=== PATIENT | male | born 1935 | race Two or more races ===

== ENCOUNTER 2019-04-26 06:42 | Emergency (ER) | payer OTHER ==
[~2019-04-26] VITALS: Ht 175.3 cm; Wt 77.2 kg
[2019-04-26] MEDS ORDERED: FURO20TA3 PO (07:45)
[2019-04-26] MEDS ORDERED: POTA10TA12 PO (07:45)
[2019-04-26] MEDS ORDERED: METF10007 PO (07:45)
[2019-04-26] MEDS ORDERED: SIMV20TA18 PO (07:45)
[2019-04-26] MEDS ORDERED: AMLO5TAB10 PO (07:45)
--- NOTE | 2019-04-26 07:56 | PHYS DOC ---
Past Medical History Past Medical History: Diabetes-Type II, High Cholesterol, Hypertension Adult General Chief Complaint Chief Complaint: ALTERED MENTAL STATUS [facility] HPI Patient is a 83 year old Montenegrin speaking male patient with history of hypertension, dyslipidemia, diabetes mellitus who presents with complaints of confusion. History was taking through translating service. Patient's son states he woke up this morning and screaming and stated he had a nightmare. Patient was confused and singing and talking to his who . Episode of confusion last about 20 minutes and patient returned to his normal. Patient had another episode of the same problem a few days ago that resolved spontaneously. Patient has history of diabetes mellitus and had episodes of racing as well as blood sugar of 40 because he does not eat well. Patient did not have blood sugar checked this morning but had coffee and candy prior to arrival to ER and had blood sugar of 121 at arrival to ER. Review of Systems Review of Systems Constitutional: Denies fever or chills [] Eyes: Denies change in visual acuity, redness, or eye pain [] HENT: Denies nasal congestion or sore throat [] Respiratory: Denies cough or shortness of breath [] Cardiovascular: No additional information not addressed in HPI [] GI: Denies abdominal pain, nausea, vomiting, bloody stools or diarrhea [] : Denies dysuria or hematuria [] Musculoskeletal: Denies back pain or joint pain [] Integument: Denies rash or skin lesions [] Neurologic: Denies headache, focal weakness or sensory changes [] Endocrine: Denies polyuria or polydipsia [] All other systems were reviewed and found to be within normal limits, except as documented in this note. Allergies Allergies Allergies Coded Allergies Type Severity Reaction Last Updated Verified No Known Drug Allergies 04/26/19 No Physical Exam Physical Exam Constitutional: Well developed, well nourished, no acute distress, non-toxic appearance. [] HENT: Normocephalic, atraumatic, bilateral external ears normal, oropharynx moist, no oral exudates, nose normal. [] Eyes: PERRLA, EOMI, conjunctiva normal, no discharge. [] Neck: Normal range of motion, no tenderness, supple, no stridor. [] Cardiovascular: Bradycardia, no murmur [] Lungs & Thorax: Bilateral breath sounds clear to auscultation [] Abdomen: Bowel sounds normal, soft, no tenderness, no masses, no pulsatile masses. [] Skin: Warm, dry, no erythema, no rash. [] Back: No tenderness, no CVA tenderness. [] Extremities: No tenderness, no cyanosis, no clubbing, ROM intact, no edema. [] Neurologic: Alert and oriented X 3, normal motor function, normal sensory function, no focal deficits noted.NIHS-0 [] Psychologic: Affect normal, judgement normal, mood normal. [] Current Patient Data Vital Signs Vital Signs Date Time Temp Pulse Resp B/P (MAP) Pulse Ox O2 Delivery O2 Flow Rate FiO2 04/26/19 10:12 50 18 98 04/26/19 07:30 98.2 186/79 (114) Room Air 98.2 Lab Values Laboratory Tests Test 04/26/19 07:41 04/26/19 08:40 Glucose (Fingerstick) 127 mg/dL (70-99) H White Blood Count 6.5 x10^3/uL (4.0-11.0) Red Blood Count 4.11 x10^6/uL (4.30-5.70) L Hemoglobin 11.7 g/dL (13.0-17.5) L Hematocrit 36.1 % (39.0-53.0) L Mean Corpuscular Volume 88 fL (79-100) Mean Corpuscular Hemoglobin 29 pg (25-35) Mean Corpuscular Hemoglobin Concent 33 g/dL (31-37) Red Cell Distribution Width 13.8 % (11.5-14.5) Platelet Count 158 x10^3/uL (140-400) Neutrophils (%) (Auto) 66 % (31-73) Lymphocytes (%) (Auto) 24 % (24-48) Monocytes (%) (Auto) 7 % (0-9) Eosinophils (%) (Auto) 2 % (0-3) Basophils (%) (Auto) 1 % (0-3) Neutrophils # (Auto) 4.3 x10^3/uL (1.8-7.7) Lymphocytes # (Auto) 1.6 x10^3/uL (1.0-4.8) Monocytes # (Auto) 0.4 x10^3/uL (0.0-1.1) Eosinophils # (Auto) 0.1 x10^3/uL (0.0-0.7) Basophils # (Auto) 0.1 x10^3/uL (0.0-0.2) Prothrombin Time 13.6 SEC (11.7-14.0) Prothrombin Time INR 1.1 (0.8-1.1) Urine Collection Type Void Urine Color Yellow Urine Clarity Clear Urine pH 5.5 Urine Specific [place] 1.020 Urine Protein Negative mg/dL (NEG-TRACE) Urine Glucose (UA) Negative mg/dL (NEG) Urine Ketones (Stick) Negative mg/dL (NEG) Urine Blood Negative (NEG) Urine Nitrite Negative (NEG) Urine Bilirubin Negative (NEG) Urine Urobilinogen Dipstick 0.2 mg/dL (0.2 mg/dL) Urine Leukocyte Esterase Negative (NEG) Urine RBC Rare /HPF (0-2) Urine WBC Occ /HPF (0-4) Urine Squamous Epithelial Cells Occ /LPF Urine Bacteria Few /HPF (0-FEW) Sodium Level 143 mmol/L (136-145) Potassium Level 3.7 mmol/L (3.5-5.1) Chloride Level 104 mmol/L (98-107) Carbon Dioxide Level 30 mmol/L (21-32) Anion Gap 9 (6-14) Blood Urea Nitrogen 19 mg/dL (8-26) Creatinine 0.9 mg/dL (0.7-1.3) Estimated GFR (Cockcroft-Gault) 80.4 BUN/Creatinine Ratio 21 (6-20) H Glucose Level 104 mg/dL (70-99) H Calcium Level 9.3 mg/dL (8.5-10.1) Magnesium Level 2.0 mg/dL (1.8-2.4) Total Bilirubin 0.4 mg/dL (0.2-1.0) Aspartate Amino Transferase (AST) 15 U/L (15-37) Alanine Aminotransferase (ALT) 13 U/L (16-63) L Alkaline Phosphatase 86 U/L (46-116) Creatine Kinase 54 U/L (39-308) Troponin I Quantitative 0.029 ng/mL (0.000-0.055) EA-Sqp-V-Type Natriuretic Peptide 377 pg/mL (0-449) Total Protein 6.9 g/dL (6.4-8.2) Albumin 3.7 g/dL (3.4-5.0) Albumin/Globulin Ratio 1.2 (1.0-1.7) Urine Opiates Screen Neg (NEG) Urine Methadone Screen Neg (NEG) Urine Barbiturates Neg (NEG) Urine Phencyclidine Screen Neg (NEG) Urine Amphetamine/Methamphetamine Neg (NEG) Urine Benzodiazepines Screen Neg (NEG) Urine Cocaine Screen Neg (NEG) Urine Cannabinoids Screen Neg (NEG) Urine Ethyl Alcohol Neg (NEG) Laboratory Tests 04/26/19 08:40 Laboratory Tests 04/26/19 08:40 EKG EKG EKG interpreted by me. EKG at 0 752 showed sinus bradycardia at rate of 55, poor R-wave progress in anteroseptal leads, no acute ST and T-wave elevation. Radiology/Procedures Radiology/Procedures [facility] [address] [place] [address] IMAGING REPORT Signed PATIENT: MAURA HILLACCOUNT: [id number] : 1935 LOCATION: ER AGE: 83 SEX: M EXAM STATUS: REG ER ORD. PHYSICIAN: BLAISE ROBERT MD REASON: confusion PROCEDURE: CT HEAD WO CONTRAST CT HEAD WO CONTRAST Clinical indications: Confusion. COMPARISON: None available. Technique: Noncontrast axial cross sectional scanning of the head was performed. PQRS compliance Statement One or more of the following individualized dose reduction techniques were utilized for this study: 1. Automated exposure control 2. Adjustment of the mA and/or kV according to patient size 3. Use of iterative reconstruction technique Findings: No acute intracranial hemorrhage or midline shift or mass-effect or hydrocephalus or extra-axial fluid collection is seen. Mild bilateral periventricular white matter hypodensity is seen consistent with chronic small vessel ischemic disease in this age group. No skull fracture or pneumocephalus is seen. No opacification of the mastoid sinuses or the middle ear cavities or the paranasal sinuses is seen. The maxillary sinuses are not completely seen in this study. Impression: No acute intracranial hemorrhage is seen. Mild chronic small vessel ischemic disease. Electronically signed by: Jose Aguirre MD (04/26/2019 8:42 AM) [id number] DICTATED and SIGNED BY: JOSE AGUIRRE MD DATE: 04/26/19841 [facility] [address] [place] [address] IMAGING REPORT Signed PATIENT: MAURA HILLACCOUNT: [id number] : 1935 LOCATION: ER AGE: 83 SEX: M EXAM STATUS: REG ER ORD. PHYSICIAN: BLAISE ROBERT MD REASON: confusion PROCEDURE: PORTABLE CHEST 1V PORTABLE CHEST 1V Clinical indications: Confusion. COMPARISON: None available. Findings: No acute lung infiltrate or pleural effusion or pulmonary edema or lung mass or pneumothorax is seen. The heart size, pulmonary vasculature, mediastinum and both padmini are unremarkable. Impression: No acute radiographic abnormality is seen. Electronically signed by: Jose Aguirre MD (04/26/2019 8:36 AM) [id number] DICTATED and SIGNED BY: JOSE AGUIRRE MD DATE: 04/26/19835 Course & Med Decision Making Course & Med Decision Making Pertinent Labs and Imaging studies reviewed. (See chart for details) Evaluation of patient in ER showed 83-year-old Montenegrin speaking male patient brought in because of one episode of confusion this morning. Patient had has history of episodes of hypoglycemia for the checking his blood sugar today and had blood sugar of 121 after eating at home. Patient was alert and oriented to ER without any neuro deficit. Patient had unremarkable CT head and chest x-ray and EKG and labs except for mild anemia. Patient had a stable blood sugar while he was in ER. Plan discharge patient home with diagnosis of possible hypoglycemia. Patient was advised to eat foods frequently. Dragon Disclaimer Dragon Disclaimer This electronic medical record was generated, in whole or in part, using a voice recognition dictation system. Departure Departure Impression: Primary Impression: Confusion Additional Impression: Anemia Disposition: HOME, SELF-CARE (at 1023) Condition: STABLE Referrals: DAVID HORVATH MD (PCP) Patient Instructions: Anemia, FAQs, Confusion, Hypoglycemia (Low Blood Sugar) Additional Instructions: Continue current medication Follow-up with your primary care physician in 3-5 days Return to ER if not getting better Thank you for visiting [facility]. We appreciate you trusting us with your care. If any additional problems come up don't hesitate to return to visit us. Please follow up with your primary care provider so they can plan additional care if needed and know about the problem that you had. If symptoms worsen come back to the Emergency Department. Any concerning symptoms that start such as chest pain, shortness of air, weakness or numbness on one side of the body, running high fevers or any other concerning symptoms return to the ER. Problem Qualifiers Additional Impression: Anemia Anemia type: unspecified type Qualified Codes: D64.9 - Anemia, unspecified BLAISE ROBERT MD Apr 26, 2019 07:56
--- NOTE | 2019-04-26 08:39 | RAD ---
PORTABLE CHEST 1V Clinical indications: Confusion. COMPARISON: None available. Findings: No acute lung infiltrate or pleural effusion or pulmonary edema or lung mass or pneumothorax is seen. The heart size, pulmonary vasculature, mediastinum and both padmini are unremarkable. Impression: No acute radiographic abnormality is seen. Electronically signed by: Bryson Aguirre MD (04/26/2019 8:36 AM) [id number]
--- NOTE | 2019-04-26 08:45 | RAD ---
CT HEAD WO CONTRAST Clinical indications: Confusion. COMPARISON: None available. Technique: Noncontrast axial cross sectional scanning of the head was performed. PQRS compliance Statement One or more of the following individualized dose reduction techniques were utilized for this study: 1. Automated exposure control 2. Adjustment of the mA and/or kV according to patient size 3. Use of iterative reconstruction technique Findings: No acute intracranial hemorrhage or midline shift or mass-effect or hydrocephalus or extra-axial fluid collection is seen. Mild bilateral periventricular white matter hypodensity is seen consistent with chronic small vessel ischemic disease in this age group. No skull fracture or pneumocephalus is seen. No opacification of the mastoid sinuses or the middle ear cavities or the paranasal sinuses is seen. The maxillary sinuses are not completely seen in this study. Impression: No acute intracranial hemorrhage is seen. Mild chronic small vessel ischemic disease. Electronically signed by: Bryson Aguirre MD (04/26/2019 8:42 AM) [id number]
[2019-04-26 08:58] LABS: BILIRUBIN,URINE NEGATIVE (NEG); CLARITY,URINE CLEAR; COLOR,URINE YELLOW; NITRITE,URINE NEGATIVE (NEG); PH,URINE 5.5; PROTEIN,URINE NEGATIVE (NEG-TRACE); UROBILINOGEN,URINE 0.2 mg/dL (0.2 mg/dL)
[2019-04-26 09:01] LABS: BASO # 0.1 x10^3/uL (0.0-0.2); BASO % 1 % (0-3); EOS # 0.1 x10^3/uL (0.0-0.7); EOS % 2 % (0-3); HEMATOCRIT 36.1 % (39.0-53.0); HEMOGLOBIN 11.7 g/dL (13.0-17.5); LYMPH # 1.6 x10^3/uL (1.0-4.8); LYMPH % 24 % (24-48); MEAN CORPUSCULAR HEMOGLOBIN 29 pg (25-35); MEAN CORPUSCULAR HGB CONC 33 g/dL (31-37); MEAN CORPUSCULAR VOLUME 88 fL (79-100); MONO # 0.4 x10^3/uL (0.0-1.1); MONO % 7 % (0-9); NEUT # 4.3 x10^3/uL (1.8-7.7); NEUT % 66 % (31-73); PLATELET COUNT 158 x10^3/uL (140-400); RED BLOOD COUNT 4.11 x10^6/uL (4.30-5.70); RED CELL DISTRIBUTION WIDTH 13.8 % (11.5-14.5); WHITE BLOOD COUNT 6.5 x10^3/uL (4.0-11.0)
[2019-04-26 09:02] LABS: BARBITURATES NEG (NEG); BENZODIAZEPINES NEG (NEG); CANNABINOIDS NEG (NEG); COCAINE NEG (NEG); METHADONE NEG (NEG); OPIATES NEG (NEG); PHENCYCLIDINE NEG (NEG)
[2019-04-26 09:04] LABS: AMPHETAMINE/METHAMPHETAMINE NEG (NEG)
[2019-04-26 09:06] LABS: CALCIUM 9.3 mg/dL (8.5-10.1); CREATININE 0.9 mg/dL (0.7-1.3); GFR 80.4; POTASSIUM 3.7 mmol/L (3.5-5.1)
[2019-04-26 09:08] LABS: BACTERIA,URINE FEW /HPF (0-FEW); PROTHROMBIN TIME PATIENT 13.6 SEC (11.7-14.0); RBC,URINE RARE /HPF (0-2); SQUAMOUS EPITHELIAL CELL,UR OCC /LPF; WBC,URINE OCC /HPF (0-4)
[2019-04-26 09:11] LABS: ALBUMIN 3.7 g/dL (3.4-5.0); ALBUMIN/GLOBULIN RATIO 1.2 (1.0-1.7); TOTAL BILIRUBIN 0.4 mg/dL (0.2-1.0); TOTAL PROTEIN 6.9 g/dL (6.4-8.2)
[2019-04-26 10:12] VITALS: BP 152/68
--- NOTE | 2019-04-26 15:46 | EKG ---
[facility] [address] [place] [address] Test Date: 2019-04-26 Test Time: 07:53:22 Pat Name: MAURA Hennessypartment: Room: Gender: M Offset Pressman: : 1935 Requested By: BLAISE ROBERT Order Number: [id number] Reading MD: Measurements Intervals [place] Rate: 55 P: 90 ND: 198 QRS: 65 QRSD: 86 T: 14 QT: 538 QTc: 517 Interpretive Statements SINUS RHYTHM QRS(T) CONTOUR ABNORMALITY CONSIDER INFERIOR MYOCARDIAL DAMAGE PROLONGED QT POSSIBLY ABNORMAL ECG RI6.01 No previous ECG available for comparison
== END 2019-04-26 10:45 | disposition home or self-care (01) ==
LOC: ER 06:42
DX: R41.0 Disorientation, unspecified (principal); D64.9 Anemia, unspecified; E11.9 Type 2 diabetes mellitus without complications; E78.00 Pure hypercholesterolemia, unspecified; I10 Essential (primary) hypertension
CPT/HCPCS: 36415; 70450; 71045; 80053; 80307; 81001; 82550; 82962; 83735; 83880; 84484; 85025; 85610; 93005; 99285-25